=== PATIENT | male | born 1965 | race African-American/Black ===

== ENCOUNTER 2017-03-10 16:05 | Inpatient (IN) | payer OTHER ==
[~2017-03-10] VITALS: Ht 182.9 cm; Wt 115.0 kg
[~2017-03-10 16:05] MED LIST: ASPI81TA82 PO; BACL20 PO; CHOL1CAP6 PO; FAMO20 PO; GABA300C3 PO; LISI-360 PO; MEDR4PAK3 PO; NOVO7030P2 SQ; TOPA100T8 PO; TRAZ100 PO
[2017-03-10 16:10] VITALS: BP 136/90; PULSE 84; RESP 18; TEMP 98; O2SAT 96
[2017-03-10] MEDS ORDERED: FAMO20TA2 PO (16:35)
[2017-03-10] MEDS ORDERED: TRAZ100T4 PO (16:35)
[2017-03-10] MEDS ORDERED: TOPA100T11 PO (16:35)
[2017-03-10] MEDS ORDERED: NOVO7030P2 SQ (16:35)
[2017-03-10] MEDS ORDERED: GABA600T PO (16:35)
[2017-03-10] MEDS ORDERED: BACL10TA PO (16:35)
[2017-03-10] MEDS ORDERED: LISI-519 PO (16:35)
[2017-03-10] MEDS ORDERED: METF500T PO (16:35)
[2017-03-10 16:44] VITALS: BP 144/87; PULSE 88; RESP 16; TEMP 98.2; O2SAT 95
--- NOTE | 2017-03-10 16:53 | PD ---
HPI Chief Complaint: Psychiatric Symptoms Time Seen by Provider: 16:27 Travel History International Travel<30 days: No Contact w/Intl Traveler<30days: No Traveled to known affect area: No History of Present Illness HPI 51-year-old male came to the emergency room with history of running out of his psych meds and abusing more cocaine and alcohol. He's been suicidal and hearing voices. Patient was made a Self act. When I went in the room to speak with him he was on [facility] of his [facility] names. Patient did not appear to be in any distress. [facility] Past Medical History Narrative Medical List of his past medical, surgical, social and family history was reviewed from the nursing note. Diabetes: Yes Diminished Hearing: No ?: Not Past Surgical History Other Surgery: Yes (NOSE SURGERY) Social History Alcohol Use: No (HX OF ALCOHOL ABUSE AND STOP DRINKING SINCE SEPTEMBER 2006) Tobacco Use: Yes (3-5 CIG PER DAY) Substance Use: No (HX OF DRUG ABUSE AND STOP SINCE SEPTEMBER 2007) Allergies-Medications (Allergen,Severity, Reaction): Coded Allergies: Iodine (Verified Allergy, Mild, ANAPHYLACTIC SHOCK, 03/10/17) Tramadol (Verified Adverse Reaction, Unknown, Nausea/Vomiting, 03/10/17) Comments List of his allergies reviewed from the nursing note. Reported Meds & Prescriptions Reported Meds & Active Scripts Active Reported Metformin (Metformin HCl) 500 Mg Tab 500 Mg PO BIDPC With meals Trazodone (Trazodone HCl) 100 Mg Tab 100 Mg PO HS Topamax (Topiramate) 100 Mg Tab 100 Mg PO HS Lisinopril 5 Mg Tab 5 Mg PO DAILY Novolin 70-30 Inj (Insulin Human Isoph/Insulin Regular) 1,000 Unit/10 Ml Vial 27 Units SQ Gabapentin 600 Mg Tab 600 Mg PO TID Famotidine 20 Mg Tab 20 Mg PO BID Baclofen 10 Mg Tab 10 Mg PO Q8HR PRN Narrative Medication List of his home medications reviewed from the nursing note. Review of Systems Except as stated in HPI: all other systems reviewed are Neg Physical Exam Narrative GENERAL: Awake, alert, no obvious distress SKIN: Focused skin assessment warm/dry. HEAD: Atraumatic. Normocephalic. EYES: Pupils equal and round. No scleral icterus. No injection or drainage. ENT: No nasal bleeding or discharge. Mucous membranes pink and moist. NECK: Trachea midline. No JVD. CARDIOVASCULAR: Regular rate and rhythm. No murmur appreciated. RESPIRATORY: No accessory muscle use. Clear to auscultation. Breath sounds equal bilaterally. GASTROINTESTINAL: Abdomen soft, non-tender, nondistended. Hepatic and splenic margins not palpable. MUSCULOSKELETAL: No obvious deformities. No clubbing. No cyanosis. No edema. NEUROLOGICAL: Awake and alert. No obvious cranial nerve deficits. Motor grossly within normal limits. Normal speech. PSYCHIATRIC: Appropriate mood and affect; insight and judgment normal. Data Data Last Documented VS Vital Signs Date Time Temp Pulse Resp B/P Pulse Ox O2 Delivery O2 Flow Rate FiO2 03/11/17 06:12 79 18 151/96 95 03/10/17 19:10 97.6 Room Air Orders Complete Blood Count With Diff (03/10/17 16:50) Comprehensive Metabolic Panel (03/10/17 16:50) Psych Screen (03/10/17 16:50) Drug Screen, Random Urine (03/10/17 16:50) Baclofen (Lioresal) (03/11/17 08:15) Famotidine (Pepcid) (03/11/17 09:00) Gabapentin (Neurontin) (03/11/17 09:00) Lisinopril (Prinivil) (03/11/17 09:00) Metformin (Glucophage) (03/11/17 09:00) Topiramate (Topamax) (03/11/17 21:00) Trazodone (Desyrel) (03/11/17 21:00) Vital Signs (Adult) SUNDAR.Q12H.E (03/11/17 08:15) Activity Oob Ad Leny (03/11/17 08:15) Lorazepam (Ativan) (03/11/17 08:15) Lorazepam Inj (Ativan Inj) (03/11/17 08:15) Lorazepam (Ativan) (03/11/17 08:15) Lorazepam Inj (Ativan Inj) (03/11/17 08:15) Acetaminophen (Tylenol) (03/11/17 08:15) Magnesium Hydroxide Liq (Milk Of Magnesi (03/11/17 08:15) Al-Mag Hy-Si 40-40-4 Mg/Ml Liq (Mag-Al P (03/11/17 08:15) Nicotine 21 Mg Patch.24 Hr (Habitrol 21 (03/11/17 09:00) Basic Metabolic Panel (Bmp) (03/12/17 06:00) Lipid Profile (03/12/17 06:00) Hemoglobin (Hgb) A1c (03/12/17 06:00) Consult Hospitalist (03/11/17 ) Admit To Inpatient (03/11/17 ) Admit Order (Ed Use Only) (03/11/17 ) Labs Laboratory Tests Test 03/10/17 17:00 White Blood Count 6.8 TH/MM3 Red Blood Count 5.14 MIL/MM3 Hemoglobin 15.4 GM/DL Hematocrit 45.8 % Mean Corpuscular Volume 89.0 FL Mean Corpuscular Hemoglobin 29.9 PG Mean Corpuscular Hemoglobin 33.6 % Concent Red Cell Distribution Width 13.9 % Platelet Count 195 TH/MM3 Mean Platelet Volume 7.5 FL Neutrophils (%) (Auto) 54.5 % Lymphocytes (%) (Auto) 36.0 % Monocytes (%) (Auto) 7.3 % Eosinophils (%) (Auto) 2.1 % Basophils (%) (Auto) 0.1 % Neutrophils # (Auto) 3.7 TH/MM3 Lymphocytes # (Auto) 2.5 TH/MM3 Monocytes # (Auto) 0.5 TH/MM3 Eosinophils # (Auto) 0.1 TH/MM3 Basophils # (Auto) 0.0 TH/MM3 CBC Comment DIFF FINAL Differential Comment Sodium Level 140 MEQ/L Potassium Level 4.0 MEQ/L Chloride Level 109 MEQ/L Carbon Dioxide Level 25.6 MEQ/L Anion Gap 5 MEQ/L Blood Urea Nitrogen 17 MG/DL Creatinine 1.22 MG/DL Estimat Glomerular Filtration 76 ML/MIN Rate Random Glucose 114 MG/DL Calcium Level 9.0 MG/DL Total Bilirubin 0.5 MG/DL Aspartate Amino Transf 32 U/L (AST/SGOT) Alanine Aminotransferase 49 U/L (ALT/SGPT) Alkaline Phosphatase 66 U/L Total Protein 7.4 GM/DL Albumin 3.7 GM/DL Urine Opiates Screen NEG Urine Barbiturates Screen NEG Urine Amphetamines Screen NEG Urine Benzodiazepines Screen NEG Urine Cocaine Screen POS Urine Cannabinoids Screen NEG MDM Medical Decision Making Medical Screen Exam Complete: Yes Emergency Medical Condition: Yes Medical Record Reviewed: Yes Differential Diagnosis Psychosis, substance abuse, depression, noncompliant with medications Narrative Course 4:52 PM awaiting for the blood test results for medical clearance. Patient will require psych screen at the end. Case will be signed over to the oncoming ER physician. Procedures EKG Prior to Arrival: Delbert Campbell MD March 10, 2017 16:53
--- NOTE | 2017-03-10 17:05 | PD ---
Physical Exam Date Seen by Provider: March 10, 2017 Time Seen by Provider: 17:04 Narrative The patient is a 51-year-old male was initially evaluated by the previous physician, Dr. Whitley. Please refer to the initial history, physical, diagnostic evaluation, and treatment modality plan. The patient signed out of 5 PM laboratory evaluation pending. Data Data Last Documented VS Vital Signs Date Time Temp Pulse Resp B/P Pulse Ox O2 Delivery O2 Flow Rate FiO2 03/10/17 16:44 98.2 88 16 144/87 95 Orders Complete Blood Count With Diff (03/10/17 16:50) Comprehensive Metabolic Panel (03/10/17 16:50) Psych Screen (03/10/17 16:50) Drug Screen, Random Urine (03/10/17 16:50) Labs Laboratory Tests Test 03/10/17 17:00 White Blood Count 6.8 TH/MM3 Red Blood Count 5.14 MIL/MM3 Hemoglobin 15.4 GM/DL Hematocrit 45.8 % Mean Corpuscular Volume 89.0 FL Mean Corpuscular Hemoglobin 29.9 PG Mean Corpuscular Hemoglobin 33.6 % Concent Red Cell Distribution Width 13.9 % Platelet Count 195 TH/MM3 Mean Platelet Volume 7.5 FL Neutrophils (%) (Auto) 54.5 % Lymphocytes (%) (Auto) 36.0 % Monocytes (%) (Auto) 7.3 % Eosinophils (%) (Auto) 2.1 % Basophils (%) (Auto) 0.1 % Neutrophils # (Auto) 3.7 TH/MM3 Lymphocytes # (Auto) 2.5 TH/MM3 Monocytes # (Auto) 0.5 TH/MM3 Eosinophils # (Auto) 0.1 TH/MM3 Basophils # (Auto) 0.0 TH/MM3 CBC Comment DIFF FINAL Differential Comment Sodium Level 140 MEQ/L Potassium Level 4.0 MEQ/L Chloride Level 109 MEQ/L Carbon Dioxide Level 25.6 MEQ/L Anion Gap 5 MEQ/L Blood Urea Nitrogen 17 MG/DL Creatinine 1.22 MG/DL Estimat Glomerular Filtration 76 ML/MIN Rate Random Glucose 114 MG/DL Calcium Level 9.0 MG/DL Total Bilirubin 0.5 MG/DL Aspartate Amino Transf 32 U/L (AST/SGOT) Alanine Aminotransferase 49 U/L (ALT/SGPT) Alkaline Phosphatase 66 U/L Total Protein 7.4 GM/DL Albumin 3.7 GM/DL Urine Opiates Screen NEG Urine Barbiturates Screen NEG Urine Amphetamines Screen NEG Urine Benzodiazepines Screen NEG Urine Cocaine Screen POS Urine Cannabinoids Screen NEG [facility] Medical Record Reviewed: Yes Supervised Visit with PATRICK: No Interpretation(s) Laboratory Tests Test 03/10/17 17:00 White Blood Count 6.8 TH/MM3 Red Blood Count 5.14 MIL/MM3 Hemoglobin 15.4 GM/DL Hematocrit 45.8 % Mean Corpuscular Volume 89.0 FL Mean Corpuscular Hemoglobin 29.9 PG Mean Corpuscular Hemoglobin 33.6 % Concent Red Cell Distribution Width 13.9 % Platelet Count 195 TH/MM3 Mean Platelet Volume 7.5 FL Neutrophils (%) (Auto) 54.5 % Lymphocytes (%) (Auto) 36.0 % Monocytes (%) (Auto) 7.3 % Eosinophils (%) (Auto) 2.1 % Basophils (%) (Auto) 0.1 % Neutrophils # (Auto) 3.7 TH/MM3 Lymphocytes # (Auto) 2.5 TH/MM3 Monocytes # (Auto) 0.5 TH/MM3 Eosinophils # (Auto) 0.1 TH/MM3 Basophils # (Auto) 0.0 TH/MM3 CBC Comment DIFF FINAL Differential Comment Sodium Level 140 MEQ/L Potassium Level 4.0 MEQ/L Chloride Level 109 MEQ/L Carbon Dioxide Level 25.6 MEQ/L Anion Gap 5 MEQ/L Blood Urea Nitrogen 17 MG/DL Creatinine 1.22 MG/DL Estimat Glomerular Filtration 76 ML/MIN Rate Random Glucose 114 MG/DL Calcium Level 9.0 MG/DL Total Bilirubin 0.5 MG/DL Aspartate Amino Transf 32 U/L (AST/SGOT) Alanine Aminotransferase 49 U/L (ALT/SGPT) Alkaline Phosphatase 66 U/L Total Protein 7.4 GM/DL Albumin 3.7 GM/DL Urine Opiates Screen NEG Urine Barbiturates Screen NEG Urine Amphetamines Screen NEG Urine Benzodiazepines Screen NEG Urine Cocaine Screen POS Urine Cannabinoids Screen NEG Differential Diagnosis Differential diagnoses includes schizophrenia, noncompliance, substance induced mood disorder, schizoaffective disorder, mood disorder, depressive disorder, suicidal ideation, Self act. Narrative Course The patient is a 51-year-old male was initially evaluated by the previous physician, Dr. Whitley. Please refer to the initial history, physical, diagnostic evaluation, treatment modality plan. The patient is a Self act and was signed out of 5 PM laboratory evaluation and subsequent psychiatric evaluation pending. Drug screen reveals cocaine, otherwise, labs are unremarkable. The patient is medically cleared to be evaluated by psychiatry. Disposition as per psych. Diagnosis Primary Impression: Substance induced mood disorder Condition: Stable Bogdan Goldberg MD March 10, 2017 17:05
[2017-03-10 17:26] LABS: AMPHETAMINE, URINE NEG (NEG); BARBITURATES, URINE NEG (NEG); COCAINE, URINE POS (NEG)
[2017-03-10 17:38] LABS: AUTOMATED NEUTROPHIL # 3.7 TH/MM3 (1.8-7.7); BASOPHIL % 0.1 % (0.0-2.0); EOSINOPHIL # 0.1 TH/MM3 (0-0.4); EOSINOPHIL % 2.1 % (0.0-4.0); HEMATOCRIT 45.8 % (39.0-51.0); HEMO FLAGS DIFF FINAL; LYMPHOCYTE # 2.5 TH/MM3 (1.0-4.8); MEAN CORPUSCULAR HEMOGLOBIN 29.9 PG (27.0-34.0); MEAN CORPUSCULAR HGB CONC 33.6 % (32.0-36.0); MONO % 7.3 % (0.0-8.0); NEUT % 54.5 % (16.0-70.0); PLATELET COUNT 195 TH/MM3 (150-450); RED BLOOD COUNT 5.14 MIL/MM3 (4.50-5.90); RED CELL DISTRIBUTION WIDTH 13.9 % (11.6-17.2); WHITE BLOOD COUNT 6.8 TH/MM3 (4.0-11.0)
[2017-03-10 17:43] LABS: ALKALINE PHOSPHATASE 66 U/L (45-117); TOTAL BILIRUBIN ADULT 0.5 MG/DL (0.2-1.0)
[2017-03-10 17:46] LABS: ALT (GPT) 49 U/L (12-78); ANION GAP 5 MEQ/L (5-15); AST (GOT) 32 U/L (15-37); BICARBONATE 25.6 MEQ/L (21.0-32.0); BLOOD UREA NITROGEN 17 MG/DL (7-18); CHLORIDE 109 MEQ/L (98-107); GLOMERULAR FILTRATION RATE 76 ML/MIN (>89); SODIUM (NA) 140 MEQ/L (136-145)
[2017-03-10 19:10] VITALS: BP 139/85; PULSE 86; RESP 18; TEMP 97.6; O2SAT 98
[2017-03-10 22:58] VITALS: BP 135/82; PULSE 100; RESP 18; O2SAT 98
[2017-03-11 02:27] VITALS: BP 119/73; PULSE 78; RESP 16; O2SAT 99
[2017-03-11 06:12] VITALS: BP 151/96; PULSE 79; RESP 18; O2SAT 95
[2017-03-11] MEDS ORDERED: LORazepam 0.5 MG TAB PO PRN (08:15)
[2017-03-11] MEDS ORDERED: ALUMINUM/MAGNESIUM/SIMETH 30 ML CUP PO PRN (08:15)
[2017-03-11] MEDS ORDERED: LORazepam 1 MG TAB PO PRN (08:15)
[2017-03-11] MEDS ORDERED: ACETAMINOPHEN 325 MG TAB PO PRN (08:15)
[2017-03-11] MEDS ORDERED: BACLOFEN 10 MG TAB PO PRN (08:15)
[2017-03-11] MEDS ORDERED: LORazepam 2 MG/ML VIAL IM PRN ×2 (08:15)
[2017-03-11] MEDS ORDERED: MAGNESIUM HYDROXIDE SUSP 30 ML CUP PO PRN (08:15)
[2017-03-11 08:40] VITALS: BP 151/93; TEMP 98.1
[2017-03-11 08:45] VITALS: BP 140/86; PULSE 82; RESP 18; TEMP 97.3; O2SAT 98
[2017-03-11] MEDS: NICOTINE 21 MG/24 HR PATCH T-DERMAL SCH (09:00)
[2017-03-11] MEDS: LISINOPRIL 5 MG TAB PO SCH (10:38)
[2017-03-11] MEDS: GABAPENTIN 300 MG CAP PO SCH ×3 (10:38→17:46)
[2017-03-11] MEDS: metFORMIN HCL 500 MG TAB PO SCH ×2 (10:38→17:45)
[2017-03-11] MEDS: FAMOTIDINE 20 MG TAB PO SCH ×2 (10:38→21:15)
--- NOTE | 2017-03-11 13:27 | PD.CONS ---
HPI Service [facility] Hospitalists Consult Requested By Psychiatric service Reason for Consult Medical management Primary Care Physician Unknown Diagnoses: History of Present Illness Written by Katherin Hess PA-C acting as scribe for Dr. Perez on 03/11/17 at 13:28 51 yo male with PMHX of HTN, insulin dependent DM, GERD, chronic low back pain secondary to DDD lumbar spine and h/o polysubstance abuse of alcohol and crack cocaine as well as medication noncompliance admitted to psychiatric unit under Self Act. Hospitalist services have been requested to assist with medical management. Patient reports chronic left sided low back pain with radiation into the left leg with some associated weakness that is followed [place]. He has discussed epidural steroid injections and surgery with the [facility] doctors for his back complaints. He denies any other complaints at present. No f/c, n/v, dizziness, headache, shortness of breath, chest pain or abdominal pain. Review of Systems Except as stated in HPI: all other systems reviewed are Neg Past Family Social History Allergies: Coded Allergies: Iodine (Verified Allergy, Mild, ANAPHYLACTIC SHOCK, 03/10/17) Tramadol (Verified Adverse Reaction, Unknown, Nausea/Vomiting, 03/10/17) Past Medical History History of polysubstance abuse, cocaine and alcohol DM, insulin dependent HTN GERD Past Surgical History Nose surgery Reported Medications Metformin (Metformin HCl) 500 Mg Tab 500 Mg PO BIDPC With meals Trazodone (Trazodone HCl) 100 Mg Tab 100 Mg PO HS Topamax (Topiramate) 100 Mg Tab 100 Mg PO HS Lisinopril 5 Mg Tab 5 Mg PO DAILY Novolin 70-30 Inj (Insulin Human Isoph/Insulin Regular) 1,000 Unit/10 Ml Vial 27 Units SQ Gabapentin 600 Mg Tab 600 Mg PO TID Famotidine 20 Mg Tab 20 Mg PO BID Baclofen 10 Mg Tab 10 Mg PO Q8HR PRN Active Ordered Medications Current Medications Medications (Trade) Dose Ordered Sig/Lissy Route Start Time Stop Time Status Last Admin (Lioresal) 10 mg Q8HR PRN PO 03/11/17 08:15 (Pepcid) 20 mg BID PO 03/11/17 09:00 03/11/17 10:38 (Neurontin) 600 mg TID PO 03/11/17 09:00 03/11/17 10:38 (Prinivil) 5 mg DAILY PO 03/11/17 09:00 03/11/17 10:38 (Glucophage) 500 mg BIDPC PO 03/11/17 09:00 03/11/17 10:38 (Topamax) 100 mg HS PO 03/11/17 21:00 (Desyrel) 100 mg HS PO 03/11/17 21:00 (Ativan) 1 mg Q6H PRN PO 03/11/17 08:15 (Ativan Inj) 1 mg Q6H PRN IM 03/11/17 08:15 (Ativan) 0.5 mg Q12H PRN PO 03/11/17 08:15 (Ativan Inj) 0.5 mg Q12H PRN IM 03/11/17 08:15 (Tylenol) 650 mg Q4H PRN PO 03/11/17 08:15 (Milk Of Magnesia Liq) 30 ml DAILY PRN PO 03/11/17 08:15 (Mag-Al Plus Susp Liq) 30 ml Q6H PRN PO 03/11/17 08:15 (Habitrol 21 Mg Patch.24 Hr) 1 patch DAILY T-DERMAL 03/11/17 09:00 Miscellaneous Information 1 HS T-DERMAL 03/11/17 21:00 Family History Diabetes Maternal side - psychiatric disorders including depression Social History Patient admits to tobacco use to 1 pack every 3 days Patient admits to ETOH consumption and crack cocaine use. Physical Exam Vital Signs Vital Signs Date Time Temp Pulse Resp B/P Pulse Ox O2 Delivery O2 Flow Rate FiO2 03/11/17 08:45 97.3 82 18 140/86 98 03/11/17 08:40 98.1 75 18 151/93 98 03/11/17 06:12 79 18 151/96 95 03/11/17 02:27 78 16 119/73 99 03/10/17 22:58 100 18 135/82 98 03/10/17 19:10 97.6 86 18 139/85 98 Room Air 03/10/17 16:44 98.2 88 16 144/87 95 03/10/17 16:10 98.0 84 18 136/90 96 Physical Exam GENERAL: This is a well-nourished, well-developed patient, in no apparent distress. Awake and alert. SKIN: No rashes, ecchymoses or lesions. Cool and dry. HEAD: Atraumatic. Normocephalic. No temporal or scalp tenderness. EYES: Pupils equal round and reactive. Extraocular motions intact. No scleral icterus. No injection or drainage. ENT: Nose without bleeding, purulent drainage or septal hematoma. Throat without erythema, tonsillar hypertrophy or exudate. Uvula midline. Airway patent. NECK: Trachea midline. No JVD or lymphadenopathy. Supple, nontender, no meningeal signs. CARDIOVASCULAR: Regular rate and rhythm without murmurs, gallops, or rubs. RESPIRATORY: Clear to auscultation. Breath sounds equal bilaterally. No wheezes , rales, or rhonchi. GASTROINTESTINAL: Abdomen soft, non-tender, nondistended. No hepato-splenomegaly , or palpable masses. No guarding. MUSCULOSKELETAL: Extremities without clubbing, cyanosis, or edema. No joint tenderness, effusion, or edema noted. No calf tenderness. (+)Left sided paraspinal tenderness to palpation. (+)Left SLR. Motor function RLE 5/5, decreased LLE 4/5. DTRs intact and 2+ bilaterally. NEUROLOGICAL: Awake and alert. Able to move all extremities. Normal speech. Laboratory Laboratory Tests Test 03/10/17 17:00 White Blood Count 6.8 Red Blood Count 5.14 Hemoglobin 15.4 Hematocrit 45.8 Mean Corpuscular Volume 89.0 Mean Corpuscular Hemoglobin 29.9 Mean Corpuscular Hemoglobin 33.6 Concent Red Cell Distribution Width 13.9 Platelet Count 195 Mean Platelet Volume 7.5 Neutrophils (%) (Auto) 54.5 Lymphocytes (%) (Auto) 36.0 Monocytes (%) (Auto) 7.3 Eosinophils (%) (Auto) 2.1 Basophils (%) (Auto) 0.1 Neutrophils # (Auto) 3.7 Lymphocytes # (Auto) 2.5 Monocytes # (Auto) 0.5 Eosinophils # (Auto) 0.1 Basophils # (Auto) 0.0 CBC Comment DIFF FINAL Differential Comment Sodium Level 140 Potassium Level 4.0 Chloride Level 109 Carbon Dioxide Level 25.6 Anion Gap 5 Blood Urea Nitrogen 17 Creatinine 1.22 Estimat Glomerular Filtration 76 Rate Random Glucose 114 Calcium Level 9.0 Total Bilirubin 0.5 Aspartate Amino Transf 32 (AST/SGOT) Alanine Aminotransferase 49 (ALT/SGPT) Alkaline Phosphatase 66 Total Protein 7.4 Albumin 3.7 Urine Opiates Screen NEG Urine Barbiturates Screen NEG Urine Amphetamines Screen NEG Urine Benzodiazepines Screen NEG Urine Cocaine Screen POS Urine Cannabinoids Screen NEG Result Diagram: 03/10/17 17003/10/17 170 Assessment and Plan Assessment and Plan 51 yo male with PMHX of HTN, insulin dependent DM, GERD and h/o polysubstance abuse of alcohol and cocaine as well as medication noncompliance admitted to psychiatric unit under Self Act. Mood disorder - Management per psychiatric team History of polysubstance abuse, crack cocaine and alcohol - does not appear to have any e/o withdrawal - will continue to monitor - discussed cessation DM, insulin dependent - obtain A1c level - accuchecks - resume home Insulin and Metformin HTN - resume home Lisinopril - monitor BP - adjust treatment as indicated Chronic low back pain 2/2 DDD lumbar spine - MRI lumbar spine for further evaluation - Tramadol for pain prn Ongoing tobacco use - counseled on smoking cessation - Nicotine patch Diabetic neuropathy - continue with home Gabapentin GERD - continue with PPI DVT prophylaxis - encourage ambulation This note was transcribed by RADHIKA UnderwoodC. I, Dr. Mitul Galvan personally performed the history, physical exam, and medical decision making; and confirmed the accuracy of the information in the transcribed note. Authenticated by Dr. Mitul Galvan on 03/11/17 at 14:05 Katherin Hess March 11, 2017 13:27 Mitul Parham MD Mar 23, 2017 00:13
[2017-03-11 16:35] VITALS: BP 119/67; PULSE 83; RESP 18; TEMP 97.6; O2SAT 97
[2017-03-11] MEDS: REMOVE OLD NICODERM (NICOTINE) PATCH T-DERMAL SCH (21:00)
[2017-03-11] MEDS: traZODone HCL 100 MG TAB PO SCH (21:14)
[2017-03-11] MEDS: TOPIRAMATE 100 MG TAB PO SCH (21:14)
[2017-03-11] MEDS: traMADol HCL 50 MG TAB PO PRN (21:15)
[2017-03-12 05:51] VITALS: BP 98/62; PULSE 77; RESP 18; TEMP 97.7; O2SAT 96
[2017-03-12] MEDS: NICOTINE 21 MG/24 HR PATCH T-DERMAL SCH (08:14)
[2017-03-12] MEDS: GABAPENTIN 300 MG CAP PO SCH ×3 (08:14→18:00)
[2017-03-12] MEDS: FAMOTIDINE 20 MG TAB PO SCH ×2 (08:14→21:14)
[2017-03-12] MEDS: metFORMIN HCL 500 MG TAB PO SCH (08:14)
[2017-03-12] MEDS: LISINOPRIL 5 MG TAB PO SCH (08:14)
[2017-03-12 09:30] LABS: ANION GAP 8 MEQ/L (5-15); BICARBONATE 29.2 MEQ/L (21.0-32.0); BLOOD UREA NITROGEN 16 MG/DL (7-18); CHLORIDE 106 MEQ/L (98-107); GLOMERULAR FILTRATION RATE 61 ML/MIN (>89); HDL CHOLESTEROL 38.8 MG/DL (40.0-60.0); LDL CHOLESTEROL 28 MG/DL (0-99); POTASSIUM 4.1 MEQ/L (3.5-5.1); SODIUM (NA) 143 MEQ/L (136-145)
[2017-03-12 12:43] LABS: HEMOGLOBIN A1a 0.9 %; HEMOGLOBIN A1b 1.7 %; HEMOGLOBIN Ao 84.2 %; HEMOGLOBIN LA1C 2.6 %; HEMOGLOBIN P3 3.7 %
--- NOTE | 2017-03-12 14:41 | HHI.HP ---
Provisional Diagnosis Admission Date March 11, 2017 at 08:19 [place] I. Adjustment disorder with depressed mood vs substance-induced mood disorder, cocaine and alcohol use disorder, chronic PTSD [place] II. Deferred [place] III. Diabetes mellitus [place] IV. Conflict with couple [place] V. 44 Certification of Person's Competence To Provide Express and Informed Consent I have personally examined Derik Herrera , a person being served at [facility] on, March 12, 2017 14:22. Express and informed consent means consent voluntarily given in writing, by a competent person, after sufficient explanation and disclosure of the subject matter involved to enable the person to make a knowing and willful decision without any element of force, fraud, deceit, duress, or other form of constraint or coercion. This person is 18 years of age or older, is not now known to be incompetent to consent to treatment with a guardian advocate, and does not have a health care surrogate or proxy currently making medical treatment decisions. I have found this person to be one of the following: [X] Competent to provide express and informed consent, as defined above, for voluntary admission to this facility and is competent to provide express and informed consent for treatment. He/she has the consistent capacity to make well reasoned, willful, and knowing decisions concerning his or her medical or mental health treatment. The person fully and consistently understands the purpose of the admission for examination/placement and is fully capable of personally exercising all rights assured under [place] Incompetent to provide express and informed consent to voluntary admission, and this is incompetent to provide express and informed consent to treatment. The person must be transferred to involuntary status and a petition for a guardian advocate filed with the Circuit Court. [] Refusing to provide express and informed consent to voluntary admission but is competent to provide express and informed consent for treatment. The person must be discharged or transferred to involuntary status. Form shall be completed within 24 hours of a person's arrival at the receiving facility and filed in the clinical record of each person: 1. Admitted on a voluntary basis 2. Permitted to provide express and informed consent to his/her own treatment 3. Allowed to transfer from involuntary to voluntary status 4. Prior to permitting a person to consent to his or her own treatment after having been previously found incompetent to consent to treatment. History of Present Illness Capacity: Has Capacity HPI The patient is a 51-year-old man, domiciled with his in [facility], employed, , 100% service-connected, with psychiatric history of PTSD, 2 previous psychiatric hospitalizations, one suicide attempt, alcohol and crack cocaine use disorder, outpatient psychiatric care in [place], he is on Abilify 10 mg, trazodone 100 mg, gabapentin 600 mg 3 times a day, topiramate 100 mg, medical history of f HTN, insulin dependent DM, GERD, chronic low back pain secondary to DDD lumbar spine admitted to psychiatric unit under Self Act. On psychiatric evaluation today patient is calm, cooperative, and pleasant. He says that in the last days he has been struggling with depression due to frequent conflicts with his . Yesterday he was using cocaine and alcohol and he felt that he wanted to live anymore and [facility]. However, he feels much better today, rested, but still hopeless, helpless, sad, and with suicidal thoughts, but no suicidal ideation. Patient was able to contract for safety in the unit. Patient says that his PTSD has been under control, he denies frequent nightmares, flashbacks, avoidance, hypervigilance. Patient is oriented 3, no attention deficit, no paranoia, no delusions, no agitation or aggressive behavior present. Patient reports daily use of crack cocaine, occasional use of alcohol. Review of Systems Constitutional: DENIES: Diaphoretic episodes, Fatigue, Fever, Weight gain, Weight loss, Chills, Dizziness, Change in appetite, Night Sweats Eyes: DENIES: Blurred vision, Diplopia, Eye inflammation, Eye pain, Vision loss , Photosensitivity, Double Vision Respiratory: DENIES: Apneas, Cough, Snoring, Wheezing, Hemoptysis, Sputum production, Shortness of breath Cardiovascular: DENIES: Chest pain, Palpitations, Syncope, Dyspnea on Exertion , PND, Lower Extremity Edema, Orthopnea, Claudication Gastrointestinal: DENIES: Abdominal pain, Black stools, Bloody stools, Constipation, Diarrhea, Nausea, Vomiting, Difficulty Swallowing, Anorexia Genitourinary: DENIES: Sexual dysfunction, Urinary frequency, Urinary incontinence, Urgency, Hematuria, Dysuria, Nocturia, Penile Discharge, Testicular Pain, Testicular Swelling Musculoskeletal: DENIES: Joint pain, Muscle aches, Stiffness, Joint Swelling, Back pain, Neck pain Integumentary: DENIES: Abnormal pigmentation, Nail changes, Pruritus, Rash Hematologic/lymphatic: DENIES: Bruising, Lymphadenopathy Immunologic/allergic: DENIES: Eczema, Urticaria Neurologic: DENIES: Abnormal gait, Headache, Localized weakness, Paresthesias, Seizures, Speech Problems, Tremor, Poor Balance Psychiatric: COMPLAINS OF: Depression, DENIES: Anxiety, Confusion, Mood changes, Hallucinations, Agitation, Suicidal Ideation, Homicidal Ideation, Delusions Past Psych History Violence risk - self (6 mos) Increase risk of self-harm Substance Abuse History Drugs/Alcohol past 12 months Patient uses alcohol and cocaine everyday Past Family Social History Coded Allergies: Iodine (Verified Allergy, Mild, ANAPHYLACTIC SHOCK, 03/10/17) Tramadol (Verified Adverse Reaction, Unknown, Nausea/Vomiting, 03/10/17) Reported Medications Metformin 500 Mg [id number] Mg PO BIDPC #60 TAB Ref 0 With meals 03/10/17 Trazodone 100 Mg [id number] Mg PO HS #30 TAB Ref 0 03/10/17 Topiramate (Topamax)100 Mg [id number] Mg PO HS #60 TAB Ref 0 03/10/17 Lisinopril 5 Mg Tab5 Mg PO DAILY #30 TAB Ref 0 03/10/17 Insulin Human Isophane-Regular 70-30 Inj (Novolin 70-30 Inj)1,000 Unit/10 Ml Vial27 Units SQ Ref 0 03/10/17 Gabapentin 600 Mg [id number] Mg PO TID #90 TAB Ref 0 03/10/17 Famotidine 20 Mg Tab20 Mg PO BID #60 TAB Ref 0 03/10/17 Baclofen 10 Mg Tab10 Mg PO Q8HR PRN (MUSCLE SPASM) Ref 0 03/10/17 Current Medications Medications (Trade) Dose Ordered Sig/Lissy Route Start Time Stop Time Status Last Admin (Lioresal) 10 mg Q8HR PRN PO 03/11/17 08:15 (Pepcid) 20 mg BID PO 03/11/17 09:00 03/12/17 08:14 (Neurontin) 600 mg TID PO 03/11/17 09:00 03/12/17 13:46 (Prinivil) 5 mg DAILY PO 03/11/17 09:00 03/12/17 08:14 (Glucophage) 500 mg BIDPC PO 03/11/17 09:00 03/12/17 08:14 (Topamax) 100 mg HS PO 03/11/17 21:00 03/11/17 21:14 (Desyrel) 100 mg HS PO 03/11/17 21:00 03/11/17 21:14 (Ativan) 1 mg Q6H PRN PO 03/11/17 08:15 (Ativan Inj) 1 mg Q6H PRN IM 03/11/17 08:15 (Ativan) 0.5 mg Q12H PRN PO 03/11/17 08:15 (Ativan Inj) 0.5 mg Q12H PRN IM 03/11/17 08:15 (Tylenol) 650 mg Q4H PRN PO 03/11/17 08:15 (Milk Of Magnesia Liq) 30 ml DAILY PRN PO 03/11/17 08:15 (Mag-Al Plus Susp Liq) 30 ml Q6H PRN PO 03/11/17 08:15 (Habitrol 21 Mg Patch.24 Hr) 1 patch DAILY T-DERMAL 03/11/17 09:00 03/12/17 08:14 Miscellaneous Information 1 HS T-DERMAL 03/11/17 21:00 (Ultram) 50 mg Q8H PRN PO 03/11/17 17:15 03/11/17 21:15 Family History He denies psychiatric family history Social History Patient was born and raised in [place], he lives in [facility] with , he is , unemployed, highest level of education is high school Physical Exam Vital Signs Vital Signs Date Time Temp Pulse Resp B/P Pulse Ox O2 Delivery O2 Flow Rate FiO2 03/12/17 05:51 97.7 77 18 98/62 96 03/10/17 19:10 Room Air Lab Results Toxicology was positive for cocaine Mental Status Examination Appearance man, age appearing, [facility], calm, cooperative and pleasant Speech: Unremarkable Orientation: x3 Memory: Unremarkable Thought Process: Logical Thought Content: Unremarkable Hallucination Type: None Suicidal Ideation: No Previous Suicide Attempts: No Homicidal Ideation: No Previous Homicide Attempts: No Affect: Good Mood: Appropriate Motor Activity: Normal gait Assessment & Plan Problem List: (1) Adjustment disorder with depressed mood Assessment & Plan: Patient has [facility]. He has been experiencing difficulties with his . He endorses depressive symptoms, helplessness, hopelessness, decreased sleep, suicidal thoughts. Alcohol intoxication and cocaine intoxication could be exacerbating depressive symptomatology. Patient represents a danger to self at this moment. He needs psychiatric hospitalization for stabilization. He will stay in the hospital voluntarily. Will reinitiate his psychotropics. Monitor closely mood and behavior. support, motivation and psychoeducation provided. ICD Code: F43.21 Assessment & Plan Estimated LOS: days Damon Rodríguez MD March 12, 2017 14:41
[2017-03-12] MEDS ORDERED: GLUCAGON 1 MG/ML VIAL OTHER PRN (16:15)
[2017-03-12] MEDS ORDERED: DEXTROSE 50% IN WATER 50 ML VIAL(D50) IV PRN (16:15)
[2017-03-12 20:24] VITALS: BP 122/69; PULSE 80; RESP 18; TEMP 98; O2SAT 97
[2017-03-12] MEDS: INSULIN ASPART SUPPLEMENTAL SCALE SQ SCH (21:00)
[2017-03-12] MEDS: REMOVE OLD NICODERM (NICOTINE) PATCH T-DERMAL SCH (21:00)
[2017-03-12] MEDS: traMADol HCL 50 MG TAB PO PRN (21:14)
[2017-03-12] MEDS: TOPIRAMATE 100 MG TAB PO SCH (21:14)
[2017-03-12] MEDS: traZODone HCL 100 MG TAB PO SCH (21:15)
[2017-03-13 05:28] VITALS: BP 114/60; PULSE 76; RESP 16; TEMP 97; O2SAT 100
[2017-03-13] MEDS: INSULIN ASPART SUPPLEMENTAL SCALE SQ SCH ×2 (06:01→11:00)
[2017-03-13] MEDS: LISINOPRIL 5 MG TAB PO SCH (08:32)
[2017-03-13] MEDS: FAMOTIDINE 20 MG TAB PO SCH (08:32)
[2017-03-13] MEDS: NICOTINE 21 MG/24 HR PATCH T-DERMAL SCH (08:32)
[2017-03-13] MEDS: GABAPENTIN 300 MG CAP PO SCH ×2 (08:32→12:22)
[2017-03-13 08:36] LABS: BICARBONATE 28.6 MEQ/L (21.0-32.0)
--- NOTE | 2017-03-13 11:52 | HHI.PR ---
Subjective Remarks Follow-up on patient with hypertension, IDDM, history of polysubstance abuse with alcohol and crack cocaine and chronic low back pain secondary to DDD lumbar spine. Seen and examined today. He sleeping in his bed but is easily arousable. Reports good pain control with tramadol. Denies any other acute medical complaints at this time. Denies any fever, chills, nausea, vomiting, cough, shortness of breath, chest pain or abdominal pain. Still awaiting MRI study to be completed. Objective Vitals Vital Signs Date Time Temp Pulse Resp B/P Pulse Ox O2 Delivery O2 Flow Rate FiO2 03/13/17 05:28 97.0 76 16 114/60 100 03/12/17 20:24 98.0 80 18 122/69 97 Result Diagram: 03/10/17 1700 03/13/17 0643 Objective Remarks GENERAL: This is a well-nourished, well-developed patient, in no apparent distress. Sleeping but easily arousable. SKIN: No rashes, ecchymoses or lesions. Cool and dry. HEAD: Atraumatic. Normocephalic. EYES: Extraocular motions intact. No scleral icterus. No injection or drainage. CARDIOVASCULAR: Regular rate and rhythm without murmurs, gallops, or rubs. RESPIRATORY: Clear to auscultation. Breath sounds equal bilaterally. No wheezes , rales, or rhonchi. GASTROINTESTINAL: Abdomen soft, non-tender, nondistended. No hepato-splenomegaly , or palpable masses. No guarding. MUSCULOSKELETAL: Extremities without clubbing, cyanosis, or edema. No joint tenderness, effusion, or edema noted. No calf tenderness. (+)Left sided paraspinal tenderness to palpation. (+)Left SLR. Motor function RLE 5/5, decreased LLE 4/5. DTRs intact and 2+ bilaterally. NEUROLOGICAL: Awake and alert. Able to move all extremities. Normal speech. Medications and IVs Current Medications Medications (Trade) Dose Ordered Sig/Lissy Route Start Time Stop Time Status Last Admin (Lioresal) 10 mg Q8HR PRN PO 03/11/17 08:15 (Pepcid) 20 mg BID PO 03/11/17 09:00 03/13/17 08:32 (Neurontin) 600 mg TID PO 03/11/17 09:00 03/13/17 08:32 (Prinivil) 5 mg DAILY PO 03/11/17 09:00 03/13/17 08:32 (Glucophage) 500 mg BIDPC PO 03/11/17 09:00 Hold 03/12/17 08:14 (Topamax) 100 mg HS PO 03/11/17 21:00 03/12/17 21:14 (Desyrel) 100 mg HS PO 03/11/17 21:00 03/12/17 21:15 (Ativan) 1 mg Q6H PRN PO 03/11/17 08:15 (Ativan Inj) 1 mg Q6H PRN IM 03/11/17 08:15 (Ativan) 0.5 mg Q12H PRN PO 03/11/17 08:15 (Ativan Inj) 0.5 mg Q12H PRN IM 03/11/17 08:15 (Tylenol) 650 mg Q4H PRN PO 03/11/17 08:15 (Milk Of Magnesia Liq) 30 ml DAILY PRN PO 03/11/17 08:15 (Mag-Al Plus Susp Liq) 30 ml Q6H PRN PO 03/11/17 08:15 (Habitrol 21 Mg Patch.24 Hr) 1 patch DAILY T-DERMAL 03/11/17 09:00 03/13/17 08:32 Miscellaneous Information 1 HS T-DERMAL 03/11/17 21:00 (Ultram) 50 mg Q8H PRN PO 03/11/17 17:15 03/12/17 21:14 (D50w (Vial) Inj) 50 ml UNSCH PRN IV 03/12/17 16:15 (Glucagon Inj) 1 mg UNSCH PRN OTHER 03/12/17 16:15 A/P Assessment and Plan 51 yo male with PMHX of HTN, insulin dependent DM, GERD and h/o polysubstance abuse of alcohol and cocaine as well as medication noncompliance admitted to psychiatric unit under Self Act. Mood disorder - Management per psychiatric team History of polysubstance abuse, crack cocaine and alcohol - does not appear to have any e/o withdrawal - will continue to monitor - discussed cessation DM, insulin dependent - A1c level 6.5 - accuchecks - BS adequately controlled - resume home Insulin and Metformin RILEY - creatinine 1.22 --> 1.46 --> 1.39 - Encourage po intake - continue Lisinopril, kidney protective - Avoid nephrotoxins - Trending down, continue to monitor. A.m. labs ordered for reevaluation. HTN - well controlled at present - continue home Lisinopril - monitor BP - adjust treatment as indicated Chronic low back pain 2/2 DDD lumbar spine - MRI lumbar spine for further evaluation - pending - Tramadol for pain prn Ongoing tobacco use - counseled on smoking cessation - Nicotine patch Diabetic neuropathy - continue with home Gabapentin GERD - continue with PPI DVT prophylaxis - encourage ambulation Katherin Hess March 13, 2017 11:52
--- NOTE | 2017-03-13 12:52 | HHI.DS ---
Psychiatry Discharge Summary Inpatient Psychiatric care?: Yes Advance Directive: No Mental Health AdvanceDirective: No Health Care Proxy: No Admission Admission Date March 11, 2017 at 08:19 Admission Diagnosis: (1) Adjustment disorder with depressed mood ICD Code: F43.21 Brief History The patient is a 51-year-old man, domiciled with his in [facility], employed, , 100% service-connected, with psychiatric history of PTSD, 2 previous psychiatric hospitalizations, one suicide attempt, alcohol and crack cocaine use disorder, outpatient psychiatric care in [place], he is on Abilify 10 mg, trazodone 100 mg, gabapentin 600 mg 3 times a day, topiramate 100 mg, medical history of f HTN, insulin dependent DM, GERD, chronic low back pain secondary to DDD lumbar spine admitted to psychiatric unit under Self Act. On psychiatric evaluation today patient is calm, cooperative, and pleasant. He says that in the last days he has been struggling with depression due to frequent conflicts with his . Yesterday he was using cocaine and alcohol and he felt that he wanted to live anymore and [facility]. However, he feels much better today, rested, but still hopeless, helpless, sad, and with suicidal thoughts, but no suicidal ideation. Patient was able to contract for safety in the unit. Patient says that his PTSD has been under control, he denies frequent nightmares, flashbacks, avoidance, hypervigilance. Patient is oriented 3, no attention deficit, no paranoia, no delusions, no agitation or aggressive behavior present. Patient reports daily use of crack cocaine, occasional use of alcohol. Tobacco Use In Past 30 Days: No Tobacco Past 30 Days Alcohol Use: 4 or More Times Per Week Hospital Course Patient observed and evaluated to be extremely manipulative, drug seeking and inappropriate. While he made multiple complaints to staff regarding pain and emotional distress, when unaware of being observed, he was flirting with multiple female patients, laughing and joking. This physician also learned patient had been doing cocaine around the time of his admission and this contributed to the altercation with his . No procedures were performed. Results Blood Pressure 114 / 60 Vital Signs Date Time Temp Pulse Resp B/P Pulse Ox O2 Delivery O2 Flow Rate FiO2 03/13/17 05:28 97.0 76 16 114/60 100 03/10/17 19:10 Room Air Laboratory Tests Test 03/10/17 03/12/17 03/13/17 17:00 08:34 06:43 Chloride Level 109 MEQ/L (98-107) Estimat Glomerular Filtration 76 ML/MIN (>89) 61 ML/MIN (>89) 65 ML/MIN (>89) Rate Random Glucose 114 MG/DL 225 MG/DL 134 MG/DL (74-106) (74-106) (74-106) Urine Cocaine Screen POS (NEG) Creatinine 1.46 MG/DL 1.39 MG/DL (0.60-1.30) (0.60-1.30) Hemoglobin A1c 6.5 % (4.3-6.0) Triglycerides Level 243 MG/DL (42-150) Cholesterol Level 115 MG/DL (120-200) HDL Cholesterol 38.8 MG/DL (40.0-60.0) Laboratory Results Test 03/12/17 08:34 Hemoglobin A1c 6.5 % (4.3-6.0) Triglycerides Level 243 MG/DL (42-150) Cholesterol Level 115 MG/DL (120-200) LDL Cholesterol 28 MG/DL (0-99) HDL Cholesterol 38.8 MG/DL (40.0-60.0) Summary of Procedures None Pending results at discharge: No Medications # of Antipsychotic meds at D/C: 0 Approp Antipsych med options 1 - Minimum of three failed multiple trials of monotherapy. 2 - Documented plan to taper to monotherapy due to previous use of multiple meds OR cross-taper in progress at D/C. 3 - Documentation of augmentation of Clozapine. 4 - Justification other than those listed in allowable values 1-3, document here : Discharge Discharge Date: March 13, 2017 Discharge Diagnosis: (1) Adjustment disorder with mixed disturbance of emotions and conduct Diagnosis: Principal ICD Code: F43.25 (2) Malingering Diagnosis: Secondary ICD Code: Z76.5 Mental Status Exam at Disch At time of discharge patient was found eating lunch, joking and talking with other peers. When informed of discharge status, patient began complaining of back pain and need for medication. No suicidal or homicidal ideation, plan or intent. Cognition intact. No psychosis. Pt Condition on Discharge: Stable Discharge Disposition: Discharge Home Discharge Instructions Diet Instructions: As Tolerated, No Restrictions Activities you can perform: Regular-No Restrictions Scheduled Appointment: [facility] Appointment Date: March 14, 2017 Appointment Time: 8:00am Discharge Time <= 30 minutes Discharge/Advance Care Plan Health Problems: (1) Adjustment disorder with depressed mood Goals to promote your health * To prevent worsening of your condition and complications * To maintain your health at the optimal level Directions to meet your goals Take your medications as prescribed Follow your dietary instruction Follow activity as directed Keep your appointments as scheduled Take your immunizations and boosters as scheduled If your symptoms worsen call your PCP, if no PCP go to Urgent Care Center or Emergency Room For 15/05 questions related to your inpatient stay or results of tests pending at discharge, please contact Dr. Henry Mckoy at Smoking is Dangerous to Your Health. Avoid second hand smoking Henry Mckoy MD March 13, 2017 12:52
[2017-03-13] MEDS ORDERED: FAMO20TA2 PO (12:58)
[2017-03-13] MEDS ORDERED: TRAZ50TA12 PO (12:58)
[2017-03-13] MEDS ORDERED: BACL10TA PO (12:58)
[2017-03-13] MEDS ORDERED: ULTR50TA5 PO (12:58)
[2017-03-13] MEDS ORDERED: TOPA100T11 PO (12:58)
[2017-03-13] MEDS ORDERED: NEUR300C PO (12:58)
[2017-03-13] MEDS ORDERED: LISI-519 PO (12:58)
--- NOTE | 2017-03-13 13:41 | RADRPT ---
EXAM DATE/TIME: 03/13/2017 11:55 [facility] COMPARISON: No previous studies available for comparison. INDICATIONS : Back pain. MEDICAL HISTORY : Hypertension. Diabetes mellitus type 2. SURGICAL HISTORY : Hernia ENCOUNTER: Subsequent ACUITY: 2 day PAIN SCORE: 3/10 LOCATION: lower back TECHNIQUE: Multiplanar multisequence MRI of the lumbar spine was performed without contrast. FINDINGS: The most caudal appearing lumbar vertebra is numbered as L5. VERTEBRAE: Bone marrow signal is within normal limits. Vertebral body height is maintained. There is no anteroli sthesis or retrolisthesis. CONUS: Normal level and configuration. T12-L1: Mild disc desiccation and decreased disc height. No disc herniation, canal stenosis, or neural forami nal stenosis. L1-L2: No disc herniation, canal stenosis, or neural foraminal stenosis. L2-L3: There is mild facet hypertrophy with a mild diffuse disc bulge. No spinal canal stenosis is present. There is mild left neural foraminal narrowing. L3-L4: There is mild to moderate facet hypertrophy. No disc herniation, canal stenosis, or neural foraminal narrowing is appreciated. L4-L5: There is disc desiccation with facet and ligamentum flavum hypertrophy. A diffuse disc bulge is prese nt. There is no spinal canal stenosis. There is mild neural foraminal narrowing bilaterally. L5-S1: No disc herniation, canal stenosis, or neural foraminal stenosis. Visualized paraspinous structures demonstrate no acute finding. CONCLUSION: Mild degenerative change of the lumbar spine with mild neural foraminal narrowing bilaterally at L4-L 5 and on the left at L2-L3. No spinal canal stenosis is present. Misha Murrell MD on March 13, 2017 at 13:34 Board Certified Radiologist. This report was verified electronically.
== END 2017-03-13 14:55 | disposition home or self-care (01) | DRG 882 ==
LOC: NEPD 16:05 → NEDA 03-11 08:19 → H260 03-11 08:43
PROVIDERS: ADMIT Psychiatry & Neurology Psychiatry; ATTEND Psychiatry & Neurology Psychiatry
DX: F43.25 Adjustment disorder with mixed disturbance of emotions and conduct (principal); N17.9 Acute kidney failure, unspecified; E11.40 Type 2 diabetes mellitus with diabetic neuropathy, unspecified; Z91.14 Patient's other noncompliance with medication regimen; F17.210 Nicotine dependence, cigarettes, uncomplicated; M51.36 Other intervertebral disc degeneration, lumbar region; I10 Essential (primary) hypertension; F43.10 Post-traumatic stress disorder, unspecified; K21.9 Gastro-esophageal reflux disease without esophagitis; G89.29 Other chronic pain; F10.10 Alcohol abuse, uncomplicated; F14.10 Cocaine abuse, uncomplicated; Z76.5 Malingerer [conscious simulation]; Z79.4 Long term (current) use of insulin; Z91.5 Personal history of self-harm; Y90.9 Presence of alcohol in blood, level not specified
CPT/HCPCS: 72148; 80048; 80053; 80061; 80307; 82948; 83036; 85025; 99284

== ENCOUNTER 2017-06-15 09:06 | Emergency (ER) | payer OTHER ==
[~2017-06-15] VITALS: Ht 177.8 cm; Wt 100.0 kg
[~2017-06-15 09:06] MED LIST changes: -ASPI81TA82 PO; +BACL10TA PO; -BACL20 PO; -CHOL1CAP6 PO; -FAMO20 PO; +FAMO20TA2 PO; -GABA300C3 PO; +GABA600T PO; -LISI-360 PO; +LISI-519 PO; -MEDR4PAK3 PO; +METF500T PO; +NEUR300C PO; +TOPA100T11 PO; -TOPA100T8 PO; -TRAZ100 PO; +TRAZ100T4 PO; +TRAZ50TA12 PO; +ULTR50TA5 PO
[2017-06-15 09:29] VITALS: BP 158/73; PULSE 81; RESP 20; TEMP 98.2; O2SAT 100
[2017-06-15] MEDS ORDERED: NOVO7030P2 SQ (09:35)
[2017-06-15] MEDS ORDERED: SODIUM CHLOR 0.9% 1000 ML INJ 1,000 ML IV ONE (10:29)
[2017-06-15] MEDS ORDERED: SODIUM CHLORIDE 0.9% FLUSH 10 ML FLUSH IVF PRN (10:30)
[2017-06-15] MEDS ORDERED: INSULIN HUMAN REGULAR 1,000 UNITS/10 ML VIAL SQ ONE (10:45)
[2017-06-15 10:49] VITALS: O2SAT 98
[2017-06-15 10:57] LABS: AUTOMATED NEUTROPHIL # 2.7 TH/MM3 (1.8-7.7); BASOPHIL % 0.3 % (0.0-2.0); EOSINOPHIL # 0.3 TH/MM3 (0-0.4); EOSINOPHIL % 4.1 % (0.0-4.0); HEMATOCRIT 43.9 % (39.0-51.0); HEMO FLAGS DIFF FINAL; LYMPH % 49.5 % (9.0-44.0); LYMPHOCYTE # 3.5 TH/MM3 (1.0-4.8); MEAN CELL VOLUME 88.4 FL (80.0-100.0); MEAN CORPUSCULAR HEMOGLOBIN 30.6 PG (27.0-34.0); MEAN CORPUSCULAR HGB CONC 34.6 % (32.0-36.0); MONO % 7.6 % (0.0-8.0); NEUT % 38.5 % (16.0-70.0); PLATELET COUNT 171 TH/MM3 (150-450); RED BLOOD COUNT 4.97 MIL/MM3 (4.50-5.90); RED CELL DISTRIBUTION WIDTH 13.5 % (11.6-17.2); WHITE BLOOD COUNT 7.1 TH/MM3 (4.0-11.0)
--- NOTE | 2017-06-15 11:01 | EKG ---
Date Performed: 06/15/2017 Time Performed: 09:29:27 PTAGE: 52 years EKG: Sinus rhythm NONSPECIFIC T-WAVE ABNORMALITY BORDERLINE ECG PREVIOUS TRACING : 08/01/2004 07.55 No significant change from previous tracing noted. DOCTOR: Aleksandr Kee Interpretating Date/Time 06/15/2017 11:01:07
[2017-06-15 11:05] LABS: BLOOD, URINE NEG (NEG); GLUCOSE,URINE 1000 mg/dL (NEG); KETONE, URINE NEG (NEG); NITRITE,URINE NEG (NEG); URINE COLOR LIGHT-YELLOW (YELLW/STRAW)
[2017-06-15 11:07] LABS: COMMENT (UR) CULT NOT INDICATED; CULTURE IF INDICATED CULT NOT INDICATED
--- NOTE | 2017-06-15 11:11 | RADRPT ---
EXAM DATE/TIME: 06/15/2017 10:46 [facility] COMPARISON: No previous studies available for comparison. INDICATIONS : Blurred vision and elevated blood sugar for 2 weeks. MEDICAL HISTORY : Hypertension. Diabetes mellitus type II. SURGICAL HISTORY : Hernia. ENCOUNTER: Initial ACUITY: 2 weeks PAIN SCORE: 0/10 LOCATION: Bilateral chest FINDINGS: A single view of the chest demonstrates the lungs to be symmetrically aerated without evidence of mas s, infiltrate or effusion. The cardiomediastinal contours are unremarkable. Osseous structures are intact. CONCLUSION: 1. No acute cardiopulmonary findings. Chema Castillo MD on June 15, 2017 at 11:09 Board Certified Radiologist. This report was verified electronically.
[2017-06-15 11:24] LABS: ALKALINE PHOSPHATASE 110 U/L (45-117); ALT (GPT) 56 U/L (12-78); ANION GAP 10 MEQ/L (5-15); AST (GOT) 16 U/L (15-37); BICARBONATE 23.4 MEQ/L (21.0-32.0); BLOOD UREA NITROGEN 19 MG/DL (7-18); CHLORIDE 104 MEQ/L (98-107); GLOMERULAR FILTRATION RATE 64 ML/MIN (>89); POTASSIUM 4.2 MEQ/L (3.5-5.1); SODIUM (NA) 137 MEQ/L (136-145); TOTAL BILIRUBIN ADULT 0.3 MG/DL (0.2-1.0)
--- NOTE | 2017-06-15 12:50 | PD ---
HPI Chief Complaint: Diabetic Time Seen by Provider: 10:06 Travel History International Travel<30 days: No Contact w/Intl Traveler<30days: No Traveled to known affect area: No History of Present Illness HPI 52-year-old male came to the emergency room with history of elevated blood sugar for past few days. Patient was at his primary care's office and the sugar was 450. Patient was sent to the emergency room for evaluation and management. Patient is a known diabetic and takes his insulin twice a day. He says his diet is off and probably this was causing his sugar to go up. He has been having some blurred vision as well. No history of chest pain. 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 Vital signs were stable. He is not in any significant distress. No history of vomiting or diarrhea. No history of fever or chills. Polydipsia and polyuria. PFSH Past Medical History Narrative Medical List of his past medical, surgical, social and family history was reviewed from the nursing note. Diabetes: Yes Patient Takes Glucophage: No Diminished Hearing: No Psychiatric: Yes (PTSD, Depression) Past Surgical History Other Surgery: Yes (NOSE SURGERY) Social History Alcohol Use: No Tobacco Use: Yes (3-5 CIG PER DAY) Substance Use: Yes Allergies-Medications (Allergen,Severity, Reaction): Coded Allergies: iodine (Unverified Allergy, Mild, ANAPHYLACTIC SHOCK, 06/06/17) potassium iodide (Unverified Allergy, Mild, ANAPHYLACTIC SHOCK, 06/06/17) povidone-iodine (Unverified Allergy, Mild, ANAPHYLACTIC SHOCK, 06/06/17) sodium iodide (Unverified Allergy, Mild, ANAPHYLACTIC SHOCK, 06/06/17) sodium iodide (Unverified Allergy, Mild, ANAPHYLACTIC SHOCK, 06/06/17) tramadol (Unverified Adverse Reaction, Unknown, Nausea/Vomiting, 06/06/17) Comments List of his allergies reviewed from the nursing note. Reported Meds & Prescriptions Reported Meds & Active Scripts Active Trazodone (Trazodone HCl) 50 Mg Tab 100 Mg PO HS Topamax (Topiramate) 100 Mg Tab 100 Mg PO HS Reported Novolin 70-30 Inj (Insulin Human Isoph/Insulin Regular) 1,000 Unit/10 Ml Vial 20 Units SQ BID Lisinopril 5 Mg Tab 5 Mg PO DAILY Gabapentin 600 Mg Tab 600 Mg PO TID Famotidine 20 Mg Tab 20 Mg PO BID Baclofen 10 Mg Tab 10 Mg PO Q8HR PRN Narrative Medication List of his home medications reviewed from the nursing note. Review of Systems Except as stated in HPI: all other systems reviewed are Neg Physical Exam Narrative GENERAL: Awake, alert, obese, no obvious distress SKIN: Focused skin assessment warm/dry. HEAD: Atraumatic. Normocephalic. EYES: Pupils equal and round. No scleral icterus. No injection or drainage. ENT: No nasal bleeding or discharge. Mucous membranes pink and moist. NECK: Trachea midline. No JVD. CARDIOVASCULAR: Regular rate and rhythm. No murmur appreciated. RESPIRATORY: No accessory muscle use. Clear to auscultation. Breath sounds equal bilaterally. GASTROINTESTINAL: Abdomen soft, non-tender, nondistended. Hepatic and splenic margins not palpable. MUSCULOSKELETAL: No obvious deformities. No clubbing. No cyanosis. No edema. NEUROLOGICAL: Awake and alert. No obvious cranial nerve deficits. Motor grossly within normal limits. Normal speech. PSYCHIATRIC: Appropriate mood and affect; insight and judgment normal. Data Data Last Documented VS Vital Signs Date Time Temp Pulse Resp B/P (MAP) Pulse Ox O2 Delivery O2 Flow Rate FiO2 06/15/17 10:49 98 06/15/17 09:29 98.2 81 20 158/73 (101) Orders Orders Blood Glucose (06/15/17 10:23) Electrocardiogram (06/15/17 10:29) Complete Blood Count With Diff (06/15/17 10:29) Comprehensive Metabolic Panel (06/15/17 10:29) Beta Hydroxybutyrate (Acetone) (06/15/17 10:29) Urinalysis - C+S If Indicated (06/15/17 10:29) Chest, Single Ap (06/15/17 10:29) Ecg Monitoring (06/15/17 10:29) Iv Access Insert/Monitor (06/15/17 10:29) Oximetry (06/15/17 10:29) NPO (06/15/17 10:29) Sodium Chlor 0.9% 1000 Ml Inj (Ns 1000 M (06/15/17 10:29) Sodium Chloride 0.9% Flush (Ns Flush) (06/15/17 10:30) Troponin I (06/15/17 10:29) Insulin Human Regular Inj (Novolin R Inj (06/15/17 10:45) Labs Laboratory Tests Test 06/15/17 10:34 06/15/17 10:39 Urine Color LIGHT-YELLOW Urine Turbidity CLEAR Urine pH 5.0 Urine Specific [place] 1.032 Urine Protein NEG mg/dL Urine Glucose (UA) 1000 mg/dL Urine Ketones NEG mg/dL Urine Occult Blood NEG Urine Nitrite NEG Urine Bilirubin NEG Urine Urobilinogen LESS THAN 2.0 MG/DL Urine Leukocyte Esterase NEG Urine WBC LESS THAN 1 /hpf Microscopic Urinalysis Comment CULT NOT INDICATED White Blood Count 7.1 TH/MM3 Red Blood Count 4.97 MIL/MM3 Hemoglobin 15.2 GM/DL Hematocrit 43.9 % Mean Corpuscular Volume 88.4 FL Mean Corpuscular Hemoglobin 30.6 PG Mean Corpuscular Hemoglobin Concent 34.6 % Red Cell Distribution Width 13.5 % Platelet Count 171 TH/MM3 Mean Platelet Volume 8.5 FL Neutrophils (%) (Auto) 38.5 % Lymphocytes (%) (Auto) 49.5 % Monocytes (%) (Auto) 7.6 % Eosinophils (%) (Auto) 4.1 % Basophils (%) (Auto) 0.3 % Neutrophils # (Auto) 2.7 TH/MM3 Lymphocytes # (Auto) 3.5 TH/MM3 Monocytes # (Auto) 0.5 TH/MM3 Eosinophils # (Auto) 0.3 TH/MM3 Basophils # (Auto) 0.0 TH/MM3 CBC Comment DIFF FINAL Differential Comment Blood Urea Nitrogen 19 MG/DL Creatinine 1.41 MG/DL Random Glucose 453 MG/DL Total Protein 7.5 GM/DL Albumin 3.6 GM/DL Calcium Level 8.6 MG/DL Alkaline Phosphatase 110 U/L Aspartate Amino Transf (AST/SGOT) 16 U/L Alanine Aminotransferase (ALT/SGPT) 56 U/L Total Bilirubin 0.3 MG/DL Sodium Level 137 MEQ/L Potassium Level 4.2 MEQ/L Chloride Level 104 MEQ/L Carbon Dioxide Level 23.4 MEQ/L Anion Gap 10 MEQ/L Estimat Glomerular Filtration Rate 64 ML/MIN Troponin I 0.02 NG/ML B-Hydroxybutyrate 0.10 MMOL/L MDM Medical Decision Making Medical Screen Exam Complete: Yes Emergency Medical Condition: Yes Medical Record Reviewed: Yes Interpretation(s) Twelve-lead EKG was reviewed by me. Normal sinus rhythm, normal axis, nonspecific ST-T wave changes. Heart rate of 82 bpm. Differential Diagnosis hyperglycemia, DKA, poor diabetic control Narrative Course 12:54 PM all the blood test results are back. Patient has renal insufficiency. This is chronic and hence he was taken off metformin. I had given him 10 units of regular insulin subcutaneous initially with 2 L of IV fluid bolus. Repeat blood sugar is 315 at this point. Patient will be discharged home. He has been recommended to follow-up with his primary care so that an additional insulin like NovoLog can be added or dose adjusted. Procedures EKG Prior to Arrival: No Diagnosis Primary Impression: Hyperglycemia Additional Impression: Poorly controlled diabetes mellitus Referrals: Primary Care Physician 2 days Additional Instructions: Return to the ER if the condition worsens or any other new concerns. Please follow-up with your primary care next couple days to adjust the dosage of your insulin and or add NovoLog. You need a better control of your sugar. Please watch what she will eat. I should be within recommendation of ADA Med/Other Pt SpecificInfo: No Change to Meds Disposition: 01 DISCHARGE HOME Condition: Stable Delbert Whitley MD Jun 15, 2017 12:50
== END 2017-06-15 13:14 | disposition home or self-care (01) ==
LOC: NEPC 09:06
DX: E11.65 Type 2 diabetes mellitus with hyperglycemia (principal); H53.8 Other visual disturbances; F43.10 Post-traumatic stress disorder, unspecified; F32.9 Major depressive disorder, single episode, unspecified; F17.210 Nicotine dependence, cigarettes, uncomplicated; I10 Essential (primary) hypertension
CPT/HCPCS: 71010; 80053; 81001; 82010; 84484; 85025; 93005; 96360; 96361; 96372; 99285; J1815; J7030